=== PATIENT | female | born 1980 | race Caucasian/White ===

== ENCOUNTER → 2023-06-01 14:25 | Outpatient (CLI) | payer OTHER, SELFPAY ==
[2023-06-01 16:25] LABS: Influenza A - CEPHEID Flu A NEGATIVE (NEGATIVE); Influenza B - CEPHEID Flu B NEGATIVE (NEGATIVE); Respiratory Syncytial Virus Negative (Negative)
[2023-06-01 16:48] LABS: COVID-19 CEPHEID 4-PLEX PCR Negative (Negative)
== END ==
PROVIDERS: Visit Provider Physician Assistant
DX: R05.9 Cough, unspecified (principal)
CPT/HCPCS: 0241U

== ENCOUNTER 2025-02-17 17:03 | Emergency (ER) | payer BC, SELFPAY ==
[2025-02-17] VITALS (14 sets, daily range): BP systolic 114–137; BP diastolic 62–82; PULSE 66–89; RESP 13–22; TEMP 36.9; O2SAT 91–99; BMI 25.0
--- NOTE | 2025-02-17 17:31 | EKG_ITS ---
[address] [address] Test Date: 2025-02-17 Pat Name: Jacquie Solano Department: Room: Gender: Female Food Vendor: JOHNNY : 1980 Requested By: Order Number: [id number] Reading MD: Douglas Mon Measurements Intervals Ambler Rate: 75 P: 61 WV: 144 QRS: 46 QRSD: 80 T: 62 QT: 360 QTc: 402 Interpretive Statements Normal sinus rhythm Electronically Signed On 02-18-2025 17:06:58 PDT by Douglas Mon
--- NOTE | 2025-02-17 17:31 | DI.RAD.S_ITS ---
PROCEDURE: XR CHEST 1V INDICATIONS: Chest Pain TECHNIQUE: One view of the chest was acquired. COMPARISON: None. FINDINGS: Surgical changes and devices: None. Lungs and pleura: Lungs are clear. No pleural effusions or pneumothorax. Mediastinum: Mediastinal contours appear normal. Heart size is normal. Bones and chest wall: No suspicious bony lesions. Overlying soft tissues appear unremarkable. IMPRESSION: No acute cardiopulmonary abnormality is seen. Dictated by: Gaurav Gordillo M.D. on 02/17/2025 at 17:26 Approved by: Guarav Gordillo M.D. on 02/17/2025 at 17:26
--- NOTE | 2025-02-17 18:52 | DI.CT.S_ITS ---
PROCEDURE: CT ANGIO ABD/PEL GI BLEED INDICATIONS: GI Bleeding protocol TECHNIQUE: After the administration of intravenous contrast, 2.5 mm thick sections acquired from the diaphragm to the symphysis. 10 mm maximum-intensity projection (MIP) reformats were then acquired. For radiation dose reduction, the following was used: automated exposure control. COMPARISON: None. FINDINGS: Image Quality: Diagnostic. Abdominal aorta: No aortic aneurysm or evidence of acute aortic syndrome. Mesenteric arteries: Patent without hemodynamically significant stenosis. Renal arteries: Patent without hemodynamically significant stenosis. OTHER: Lower Chest: No significant findings. Liver: No solid mass. Gallbladder: No radiopaque gallstones or wall thickening. Biliary ducts: No biliary dilation. Pancreas: No ductal dilation. Spleen: Size is within normal limits. Adrenal Glands: No adrenal nodules. Kidneys and Ureters: No hydronephrosis. No solid mass. No complex renal cystic lesion which requires follow up. Stomach and Bowel: Normal colonic caliber, without significant wall thickening. No areas of abnormal contrast accumulation Peritoneum: No abnormal intraperitoneal fluid. No free air. Ventral Wall: No hernia. Abdominal Nodes: No retroperitoneal or mesenteric adenopathy by size criteria. Vessels: Aorta and inferior vena cava are normal in size. PELVIS: Pelvic Organs: Unremarkable. Bladder: Unremarkable. Pelvic Nodes: No enlarged lymph nodes. Miscellaneous: No inguinal hernias are seen. Bones: No aggressive osseous abnormality. IMPRESSION: 1. No signs of active GI bleeding at this time. If there is a possibility of intermittent GI bleeding, adequate assessment can be performed with bleeding scan. 2. No acute intra-abdominal abnormality. Dictated by: Josep Moncada M.D. on 02/17/2025 at 20:01 Approved by: Josep Moncada M.D. on 02/17/2025 at 20:08
[2025-02-17 19:10] LABS: Add Manual Diff / Slide Review NO; Hematocrit 39.3 % (36-46); Hemoglobin 13.2 g/dL (12.0-16.0); Lymphocytes Absolute Auto 2400 /uL (1100-4500); Mean Corpuscular HGB Conc 33.4 % (30-36); Mean Corpuscular Hemoglobin 27.6 PG (26-34); Mean Corpuscular Volume 82.6 fL (80-100); Platelet Count 288 X10^3/uL (150-400)
[2025-02-17 19:19] LABS: INR 0.9 (0.9-1.3); Prothrombin Time 10.6 SECONDS (9.4-12.5)
[2025-02-17 19:22] LABS: PTT Partial Thromboplastin Tim 32 SECONDS (25.1-36.5)
[2025-02-17 19:23] LABS: Alanine Aminotransferase 12 IU/L (<35); Albumin 4.6 g/dL (3.5-5.0); Albumin Globulin Ratio 1.4 (1.0-2.8); Alkaline Phosphatase 50 U/L (38-126); Blood Urea Nitrogen 17 mg/dL (7-17); Calcium 9.0 mg/dL (8.4-10.2); Carbon Dioxide 24 mmol/L (22-32); Chloride 104 mmol/L (98-107); Creatine Kinase 34 U/L (30-135); Estimated Glomerular Filt Rate > 60 mL/min (>60); Globulin 3.4 g/dL (1.7-4.1); Glucose 98 mg/dL (70-99); HEMOLYSIS < 15 (0-50); Lipase 72 U/L (23-300); Magnesium 1.9 mg/dL (1.6-2.3); Potassium 3.8 mmol/L (3.4-5.1); Sodium 137 mmol/L (137-145); Total Protein 8.0 g/dL (6.3-8.2)
[2025-02-17 19:35] LABS: NT-proBNP (BNP-Adult 18+) 83 pg/mL (<125); Troponin I < 0.012 ng/mL (0.01-0.034)
--- NOTE | 2025-02-17 19:47 | ED.GIBLEED ---
HPI - GI Bleed General Chief complaint: GI Bleed Stated complaint: SOB, dizziness, KAY, heart palpitations Time Seen by Provider: 02/17/25 18:12 Source: patient Mode of arrival: Ambulatory History of Present Illness HPI Narrative: 44-year-old female complains of loose stools on Saturday, with some blood component, none Saturday or Saturday, had some shortness of breath with dizziness, had been drinking alcohol on Saturday, was worried that she might have a bad hangover. No further bloody stools. She took a single dose of ibuprofen, not regularly taking ibuprofen. No known cirrhosis or liver disease or clotting problems. Denies fevers or chills. Denies chest pain. Has sensation of heart beating fast. Related Data Previous Rx's ?Medication ?Instructions ?Recorded omeprazole 20 mg capsule,delayed 20 mg PO DAILY upper abdominal 02/17/25 release pain 30 days #30 caps Allergies Allergy/AdvReac Type Severity Reaction Status Date / Time No Known Drug Allergies Allergy Verified 02/17/25 17:24 Patient History Social History Smoking Status: Never smoker Smoking Status: Never smoker Alcohol type: hard liquor Exam Narrative Exam Narrative: GENERAL: Well-developed patient, in mild distress. HEAD: Atraumatic. Normocephalic. EYES: Pupils equal round and reactive. Extraocular motions intact. No scleral icterus. No injection or drainage. ENT: Nose without bleeding, purulent drainage. Throat without erythema, tonsillar hypertrophy or exudate. Airway patent. NECK: Trachea midline. Non tender CARDIOVASCULAR: Regular rate and rhythm without murmurs, gallops, or rubs. RESPIRATORY: Clear to auscultation. Breath sounds equal bilaterally. No wheezes, rales, or rhonchi. GASTROINTESTINAL: Abdomen soft, non-tender, nondistended. EXTREMITIES: No edema or joint tenderness. BACK: Nontender without deformity or crepitance. No flank tenderness. NEURO: AOx3. Motor functions grossly nonfocal. SKIN: No rash or erythema of visible areas Initial Vital Signs Initial Vital Signs: Vital Signs Pulse Rate 89 02/17/25 17:14 Pulse Oximetry 99 02/17/25 17:14 Course Orders Ordered: Discontinued Medications Aspirin (Aspirin 81 Mg Chew Tab) 324 mg PO NOW ONE Stop: 02/17/25 17:32 Last Admin: 02/17/25 19:35 Dose: Not Given Documented By: ALEXX Ibuprofen (Ibuprofen 400 Mg Tablet) 800 mg PO NOW ONE Stop: 02/17/25 23:33 Last Admin: 02/18/25 00:10 Dose: 800 mg Documented By: Pantoprazole Sodium (Pantoprazole 40 Mg Vial) 80 mg IV NOW ONE Stop: 02/17/25 21:45 Last Admin: 02/17/25 23:26 Dose: 80 mg Documented By: Vital Signs Vital signs: Vital Signs - 8 hr 02/17/25 17:14 02/17/25 17:15 02/17/25 17:15 Temperature Pulse Rate 89 88 Respiratory Rate Blood Pressure 137/69 Pulse Oximetry 99 99 Oxygen Delivery Method 02/17/25 17:23 02/17/25 19:01 02/17/25 19:01 Temperature 98.4 F Pulse Rate 84 80 Respiratory Rate 16 Blood Pressure 137/69 137/73 Pulse Oximetry 99 93 Oxygen Delivery Method Room Air 02/17/25 19:42 02/17/25 19:43 02/17/25 19:43 Temperature Pulse Rate 73 69 Respiratory Rate 17 17 Blood Pressure 117/62 Pulse Oximetry 91 98 Oxygen Delivery Method MDM - GI Bleed Lab Data Attestation: I reviewed the patient's lab results. Lab results narrative: White blood cell count 06672, hemoglobin 13.2, platelets 288,000. Glucose 98. Normal renal function, serum CO2, electrolytes, liver functions, lipase. Stool studies requested, no specimen received. Troponin negative/unmeasurable. Urine dip negative. Urine test negative. 02/17/25 19:00 02/17/25 19:00 Labs: Lab Results 02/17/25 02/17/25 Range/Units 19:00 21:55 WBC 10.1 (4.5-11.0) X10^3/uL RBC 4.76 (4.0-5.2) X10^6/uL Hgb 13.2 (12.0-16.0) g/dL Hct 39.3 (36-46) % MCV 82.6 (80-100) fL MCH 27.6 (26-34) PG MCHC 33.4 (30-36) % RDW 13.9 (11.6-14.8) % Plt Count 288 (150-400) X10^3/uL Neut % (Auto) 65.2 (50-75) % Lymph % (Auto) 24.1 L (25-40) % Bullock % (Auto) 7.4 (3-14) % Eos % (Auto) 2.5 (2-4) % Baso % (Auto) 0.8 (0-2) % Neut # (Auto) 6600 (0143-2605) /uL Lymph # (Auto) 2400 (8024-9893) /uL Bullock # (Auto) 700 (0-900) /uL Eos # (Auto) 200 (0-450) /uL Baso # (Auto) 100 (0-100) /uL PT 10.6 (9.4-12.5) SECONDS INR 0.9 (0.9-1.3) APTT 32 (25.1-36.5) SECONDS Sodium 137 (137-145) mmol/L Potassium 3.8 (3.4-5.1) mmol/L Chloride 104 (98-107) mmol/L Carbon Dioxide 24 (22-32) mmol/L BUN 17 (7-17) mg/dL Creatinine 0.68 (0.52-1.04) mg/dL Estimated GFR > 60 (>60) mL/min BUN/Creatinine Ratio 25.0 H (6-22) Glucose 98 (70-99) mg/dL Calcium 9.0 (8.4-10.2) mg/dL Magnesium 1.9 (1.6-2.3) mg/dL Total Bilirubin 0.2 (0.2-1.3) mg/dL AST 19 (14-36) IU/L ALT 12 (<35) IU/L Alkaline Phosphatase 50 (38-126) U/L Total Creatine Kinase 34 (30-135) U/L Troponin I < 0.012 < 0.012 (0.01-0.034) ng/mL NT-Pro-B Natriuret Pep 83 (<125) pg/mL Total Protein 8.0 (6.3-8.2) g/dL Albumin 4.6 (3.5-5.0) g/dL Globulin 3.4 (1.7-4.1) g/dL Albumin/Globulin Ratio 1.4 (1.0-2.8) Lipase 72 (23-300) U/L Point of Care Testing Test Results Negative Urine Dip Bedside Urine Glucose Negative Bedside Urine Bilirubin - Negative Bedside Urine Ketone - Negative Urine Specific Dennard 1.015 Bedside Urine Occult Blood - Negative Bedside Urine pH 6.0 Bedside Urine Protein - Negative Bedside Urine Urobilinogen - Negative Bedside Urine Nitrite - Negative Bedside Urine Leukocytes - Negative Esterase Imaging Data CT angiogram abdomen and pelvis GI bleeding protocol: Radiologist's Impression: [address] [address] [address] Scan Report Signed Patient: Jacquie Solano MR#: [id number] : 1980 Acct:[id number] Age/Sex: 44 / F Date of Service: 02/17/25 Loc: ED Accession Number: [id number] Procedure: CT angio Abd/Pel GI Bleed Ordering Provider: Fabrizio Campbell MD PROCEDURE: CT ANGIO ABD/PEL GI BLEED INDICATIONS: GI Bleeding protocol TECHNIQUE: After the administration of intravenous contrast, 2.5 mm thick sections acquired from the diaphragm to the symphysis. 10 mm maximum-intensity projection (MIP) reformats were then acquired. For radiation dose reduction, the following was used: automated exposure control. COMPARISON: None. FINDINGS: Image Quality: Diagnostic. Abdominal aorta: No aortic aneurysm or evidence of acute aortic syndrome. Mesenteric arteries: Patent without hemodynamically significant stenosis. Renal arteries: Patent without hemodynamically significant stenosis. OTHER: Lower Chest: No significant findings. Liver: No solid mass. Gallbladder: No radiopaque gallstones or wall thickening. Biliary ducts: No biliary dilation. Pancreas: No ductal dilation. Spleen: Size is within normal limits. Adrenal Glands: No adrenal nodules. Kidneys and Ureters: No hydronephrosis. No solid mass. No complex renal cystic lesion which requires follow up. Stomach and Bowel: Normal colonic caliber, without significant wall thickening. No areas of abnormal contrast accumulation Peritoneum: No abnormal intraperitoneal fluid. No free air. Ventral Wall: No hernia. Abdominal Nodes: No retroperitoneal or mesenteric adenopathy by size criteria. Vessels: Aorta and inferior vena cava are normal in size. PELVIS: Pelvic Organs: Unremarkable. Bladder: Unremarkable. Pelvic Nodes: No enlarged lymph nodes. Miscellaneous: No inguinal hernias are seen. Bones: No aggressive osseous abnormality. IMPRESSION: 1. No signs of active GI bleeding at this time. If there is a possibility of intermittent GI bleeding, adequate assessment can be performed with bleeding scan. 2. No acute intra-abdominal abnormality. Dictated by: Josep Moncada M.D. on 02/17/2025 at 20:01 Approved by: Josep Moncada M.D. on 02/17/2025 at 20:08 Chest x-ray: Radiologist's Impression: [address] [address] XRay Report Signed Patient: Jacquie Solano MR#: [id number] : 1980 Acct:[id number] Age/Sex: 44 / F Date of Service: 02/17/25 Loc: ED Accession Number: [id number] Procedure: XR chest 1V Ordering Provider: Tejas Patricia D.O. PROCEDURE: XR CHEST 1V INDICATIONS: Chest Pain TECHNIQUE: One view of the chest was acquired. COMPARISON: None. FINDINGS: Surgical changes and devices: None. Lungs and pleura: Lungs are clear. No pleural effusions or pneumothorax. Mediastinum: Mediastinal contours appear normal. Heart size is normal. Bones and chest wall: No suspicious bony lesions. Overlying soft tissues appear unremarkable. IMPRESSION: No acute cardiopulmonary abnormality is seen. Dictated by: Gaurav Gordillo M.D. on 02/17/2025 at 17:26 Approved by: Garuav Gordillo M.D. on 02/17/2025 at 17:26 ECG Data Attestation: I personally reviewed and interpreted this ECG as follows: Interpretation: 1750, normal sinus rhythm with rate of 75, no obvious ST segment elevation or depression changes. ID 144, QRS 80, QTC 402. MDM Narrative Medical decision making narrative: 44-year-old female had been drinking on Saturday 3 days ago, had onset of diarrhea with some blood, no prior GI bleeding, none since that event, but feels more short of breath and had some dizziness. Afebrile on triage. Abdomen benign. No obvious trauma. No known liver/cirrhosis problems. No blood thinner medications taken. Labs pending. EKG screening was unremarkable. IV protonix. EKG shows sinus rhythm, normal rate, no obvious ischemic changes. Chest x-ray, no acute changes. See radiology report. Lab data: White blood cell count 97205, hemoglobin 13.2, platelets 288,000. Glucose 98. Normal renal function, serum CO2, electrolytes, liver functions, lipase. Stool studies requested, no specimen received. Troponin negative/unmeasurable. Urine dip negative. Urine test negative. CT angiogram abdomen and pelvis GI bleeding protocol. No GI bleeding source identified, no acute changes noted. See radiology report. Says she does not usually/regularly drink alcohol or use other drugs. Repeat troponin also negative. DC home, Rx sent for omeprazole. Return precautions discussed. Discharge Plan Departure Patient Disposition: Home Clinical Impression: Gastrointestinal bleed, Dizziness Instructions: Gastrointestinal Bleeding Activity Restrictions/Additional Instructions: Recent alcohol use Saturday, some diarrhea with blood component, no history of prior gastrointestinal bleeding or use of blood thinner medications. No injury trauma new activities. No subsequent bleeding Saturday or Saturday. Some dizziness with shortness of breath today, thought it might be a bad hangover or some other problem. No increased heart rate noted today. Abdominal exam unremarkable. Screening labs reassuring. CT abdomen and pelvis done with angiography, in gastrointestinal bleeding protocol, no sources of any gastrointestinal bleeding were identified, in no acute processes were noted in the abdominopelvic visualized regions. IV Protonix antacid was given. EKG and chest x-ray and blood testing not suggestive of acute cardiopulmonary process at this time. Symptoms seemed to be improved. Encouraged to not alcohol binge drink. Encouraged to hold off on use of ibuprofen. Consider use of omeprazole antacid therapy. Recheck with your regular doctor advised later this week in follow up. Consider upper endoscopy evaluation and/or lower endoscopy evaluation as an outpatient basis for now. You might need referral from your regular doctor for surgery consult, who does endoscopy evaluations in our area, clinic contact information given below. Return earlier for any change worsening symptoms or any concerns prior. Prescriptions: New omeprazole 20 mg capsule,delayed release(DR/EC) 20 mg PO DAILY 30 Days Qty: 30 0RF Referrals: Miscellaneous,MD Andrew [Primary Care Provider, Medical] Eric Johnson MD [Physician, General Surgery] Stand Alone Forms: Patient Portal/API
[2025-02-17 22:54] LABS: Troponin I < 0.012 ng/mL (0.01-0.034)
[2025-02-17] MEDS: PANTOPRAZOLE 40 MG VIAL 80 MG IV (23:26)
[2025-02-18] VITALS: PULSE 71; RESP 21; O2SAT 98
[2025-02-18] MEDS: IBUPROFEN 400 MG TABLET 800 MG PO (00:10)
[2025-02-18 00:30] VITALS: PULSE 68; RESP 15; O2SAT 98
[2025-02-18 01:00] VITALS: PULSE 68; RESP 20; O2SAT 98
[2025-02-18 01:19] VITALS: BP 119/69; PULSE 70; RESP 17; O2SAT 97
== END 2025-02-18 01:28 | disposition home or self-care (01) ==
PROVIDERS: Family Medicine; Emergency Provider Emergency Medicine
DX: K92.2 Gastrointestinal hemorrhage, unspecified (principal); R42 Dizziness and giddiness; R07.9 Chest pain, unspecified
CPT/HCPCS: 71045; 74174; 80053; 81003; 81025; 82550; 83690; 83735; 83880; 84484; 85025; 85610; 85730; 93005; 96374; 99284; J2470; Q9967

== ENCOUNTER 2025-02-20 07:30 | Emergency (ER) | payer BC, SELFPAY ==
[2025-02-20] VITALS (9 sets, daily range): BP systolic 122–162; BP diastolic 79–97; PULSE 76–97; RESP 11–23; TEMP 36.8; O2SAT 96–98; BMI 25.8
[2025-02-20] MEDS: KETOROLAC 30 MG/ML VIAL IM (08:34)
[2025-02-20] MEDS: CYCLOBENZAPRINE 10 MG TABLET 5 MG PO (08:35)
[2025-02-20] MEDS: LIDOCAINE 5% PATCH 1 EACH TOP (08:36)
--- NOTE | 2025-02-20 08:45 | ED_ITS ---
HPI - Neck Pain/Injury General Chief Complaint: Neck Pain/Injury Stated Complaint: Severe neck pain(in back); getting worse Time Seen by Provider: 02/20/25 08:31 Source: patient Mode of arrival: Ambulatory Limitations: no limitations History of Present Illness HPI Narrative: Patient is a 44-year-old female without known significant past medical history presenting with right-sided neck pain. Patient states that she has chronic ?nerve pain? on the right neck which has been previously managed by chiropractic management and medications. States that she has had approximately 1 week of pain at this time and was seen by massage therapy and her chiropractor on the day prior however have recurrence of her pain on the morning of presentation. She does state that the pain is relieved with use of Aleve however endorses concern given the duration of symptoms. Patient denies any trauma to the area, no fevers or chills, no severe headache, no weakness, no numbness or tingling. MD complaint: neck pain Onset (ago): week(s) (1) Related Data Previous Rx's ?Medication ?Instructions ?Recorded omeprazole 20 mg capsule,delayed 20 mg PO DAILY upper abdominal 02/17/25 release pain 30 days #30 caps cyclobenzaprine 5 mg tablet 5 mg PO TID PRN muscle spa sm #12 02/20/25 tabs Allergies Allergy/AdvReac Type Severity Reaction Status Date / Time No Known Drug Allergies Allergy Verified 02/20/25 07:48 Review of Systems Review of Systems ROS Unobtainable: All systems reviewed & are unremarkable except as noted in HPI and below Constitutional Constitutional: Denies fever(s), Denies headache(s) and Denies weakness Eyes Eyes: Denies blurry vision and Denies change in vision ENT Ears, Nose, Mouth, and Throat: Denies vertigo, Denies dizziness, Denies headache(s) and Reports neck pain Cardiovascular Cardiovascular: Denies irregular heart rhythm and Denies lightheadedness Musculoskeletal Musculoskeletal: Denies abnormal gait, Denies muscle weakness, Reports neck pain, Denies numbness, Denies radiating pain into limb and Denies tingling Integumentary/Breasts Skin/Breast: Denies rash Neurologic Neurologic: Denies abnormal gait, Denies vertigo, Denies dizziness, Denies headache(s), Denies numbness, Denies tingling and Denies weakness Patient History Social History Smoking Status: Never smoker Smoking Status: Never smoker Alcohol type: hard liquor Exam Narrative Exam Narrative: Point tenderness over the right paraspinal neck without midline tenderness, no decreased range of motion, no extremity weakness, numbness, tingling. Initial Vital Signs Initial Vital Signs: Vital Signs Pulse Rate 97 H 02/20/25 07:37 Blood Pressure 162/84 H 02/20/25 07:37 Pulse Oximetry 98 02/20/25 07:37 Const General: cooperative HENMT Head: normal to inspection Ears: hearing grossly normal bilaterally Neck Neck: normal visual inspection, full ROM, no meningeal signs, trachea midline, supple and No torticollis Carotids: no bruits Lymphatic: No lymphedema and No lymphadenopathy Chest Chest: normal inspection of the chest Resp Effort & Inspection: normal respiratory effort Cardio Rate: regular rate Rhythm: regular rhythm Back/Spine/Pelvis Cervical Spine: cervical ROM normal, cervical muscular tenderness, No pain with cervical ROM and No cervical spinal tenderness Skin General: no rashes or lesions noted Neuro General: patient alert, patient awake, patient oriented x3, moves all extremities, normal light touch, pain and propioception, no meningeal signs and no focal motor deficits Course Orders Ordered: Discontinued Medications Cyclobenzaprine HCl (Cyclobenzaprine 10 Mg Tablet) 5 mg PO NOW ONE Stop: 02/20/25 08:00 Last Admin: 02/20/25 08:35 Dose: 5 mg Documented By: MIRIAN Ketorolac Tromethamine (Ketorolac 30 Mg/Ml Vial) 30 mg IM NOW ONE Stop: 02/20/25 08:00 Last Admin: 02/20/25 08:34 Dose: 30 mg Documented By: MIRIAN Lidocaine (Lidocaine 5% Patch) 1 each TOP NOW ONE Stop: 02/20/25 08:00 Last Admin: 02/20/25 08:36 Dose: 1 each Documented By: MIRIAN Vital Signs Vital signs: Vital Signs - 8 hr 02/20/25 07:45 Temperature 98.2 F Pulse Rate 92 H Respiratory Rate 16 Blood Pressure 162/84 H Pulse Oximetry 98 Oxygen Delivery Method Room Air MDM - Neck Pain/Injury Differential Diagnosis Differential diagnosis: Likely disc disorder of cervical region, cervical radiculopathy, vertebral artery dissection, torticollis, strain of neck muscle and other (Disc herniation, cervical occipital strain, neuropathy) Medical Records Attestation: I reviewed the patient's medical records. Lab Data Labs: Point of Care Testing Test Results Negative MDM Narrative Medical decision making narrative: History and exam as above. Patient presenting with atraumatic neck pain similar to prior. Given patient's history of chiropractor intervention may represent vertebral dissection however exam is overall reassuring without headache or n eurological deficits. No overlying skin changes to suggest zoster or hematoma formation, no bruit or decreased range of motion of the neck. No midline tenderness. Discharge Plan Departure Patient Disposition: Home Clinical Impression: Cervicalgia Strain of neck muscle Qualifiers: Encounter type: initial encounter Qualified Code(s): S16.1XXA - Strain of muscle, fascia and tendon at neck level, initial encounter Instructions: Neck Pain (Alternative Therapy), DI for Neck Pain Activity Restrictions/Additional Instructions: You were seen in the emergency department for your neck pain. Evaluation here was overall reassuring and did not demonstrate any evidence of an injury that would require advanced imaging or admission to the hospital. We do recommend close follow-up with your primary care provider, they may recommend that you were seen by an orthopedic surgeon for spinal evaluation or physical therapy for further management. We recommend continued use of lidocaine patches, NSAIDs such as ibuprofen or Aleve, gentle stretches. If you develop sudden worsening of your pain, new weakness, numbness, tingling in your upper extremity, severe headache, lightheadedness, pulsing in your ear or hearing changes, or other symptoms that are concerning to you, please return to the emergency department for further evaluation. Prescriptions: New cyclobenzaprine 5 mg tablet 5 mg PO TID PRN (Reason: muscle spasm) Qty: 12 0RF No Action omeprazole 20 mg capsule,delayed release(DR/EC) 20 mg PO DAILY 30 Days Qty: 30 0RF Referrals: Miscellaneous,Doctor, MD [Primary Care Provider, Medical] Stand Alone Forms: Patient Portal/API
== END 2025-02-20 10:16 | disposition home or self-care (01) ==
PROVIDERS: Emergency Provider Student in an Organized Health Care Education/Training Program
DX: M54.2 Cervicalgia (principal)
CPT/HCPCS: 81025; 96372; 99283; 99284; J1885